=== PATIENT | male | born 1955 | race Hispanic/Latino ===

== ENCOUNTER 2019-09-07 14:38 | Outpatient (CLI) | payer MEDICARE ==
--- NOTE | 2019-09-07 15:18 | XRay Report ---
LUMBOSACRAL SPINE, 5 VIEWS INDICATION: BACK PAIN. Injury COMPARISON: None. IMPRESSION: Normal alignment. No evidence for compression deformity, bone lesion or subluxation. A nterior bridging osteophytes are identified throughout the lower thoracic spine and upper lumbar spin e. The disc spaces appear normal height. Mild diffuse facet arthropathy is evident. The oblique image s demonstrate wide patency of the neural foramen bilaterally. 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 Signer Name: Jose Ocasio Jr, MD Signed: 09/07/2019 3:14 PM Workstation Name: [id number]
--- NOTE | 2019-09-07 15:20 | XRay Report ---
RIGHT ELBOW, 3 VIEWS INDICATION: ELBOW PAIN. Injury. COMPARISON: None. IMPRESSION: No displaced fracture or malalignment is identified. Mild osteoarthritic changes are sophy ntified at the elbow. Small olecranon spur. There is suggestion of a small anterior and posterior stacie int effusion. Signer Name: Jose Ocasio Jr, MD Signed: 09/07/2019 3:15 PM Workstation Name: [id number]
== END 2019-09-07 14:39 | disposition home or self-care (01) ==
LOC: XRAY 14:38
PROVIDERS: ATTEND Internal Medicine
DX: M19.021 Primary osteoarthritis, right elbow (principal); M54.5 Low back pain
CPT/HCPCS: 72110